=== PATIENT | female | born 1995 | race African-American/Black ===

== ENCOUNTER 2018-01-20 08:05 | Emergency (ER) | payer SELFPAY ==
[2018-01-20 08:12] VITALS: BP 126/79; PULSE 84; RESP 16; TEMP 98.6; O2SAT 100
--- NOTE | 2018-01-20 08:25 | PD ---
HPI Chief Complaint: Complaint Time Seen by Provider: 08:16 Travel History International Travel<30 days: No Contact w/Intl Traveler<30days: No Traveled to known affect area: No History of Present Illness HPI The patient is a 22-year-old female who presents to the emergency department with a 2 day history of dysuria, frequency, urgency, and suprapubic discomfort. The patient has been taking [id number] Azo with mild alleviation of her symptoms, however, it returned this morning at 5:30 AM, waking her from her sleep. She denies any vaginal discharge or vaginal bleeding. Patient is a G2 with 2 previous ectopics required surgery to remove her fallopian tubes. The patient's last menstrual cycle was mid December, she denies . He does complain of subjective fevers and chills, but denies any nausea, vomiting, upper abdominal pain, or back pain. Symptoms are moderate and possibly exacerbated by an underlying UTI. PFSH Past Medical History Narrative Medical Ectopic 2 Diminished Hearing: No : 1 Para: 0 Ectopic : Yes (SX IN ) Past Surgical History Genitourinary Surgery: Yes (TUBAL ) Pacemaker: No Social History Alcohol Use: No Tobacco Use: No Substance Use: No Allergies-Medications (Allergen,Severity, Reaction): Coded Allergies: No Known Allergies (Verified Adverse Reaction, Unknown, 01/20/18) Reported Meds & Prescriptions Reported Meds & Active Scripts Active No Active Prescriptions or Reported Medications Review of Systems Except as stated in HPI: all other systems reviewed are Neg General / Constitutional: Positive: Fever, Chills Gastrointestinal: No: Nausea, Vomiting, Abdominal Pain Genitourinary: Positive: Urgency, Frequency, Dysuria, Other (Suprapubic disc), No: Discharge, Vaginal Bleeding Physical Exam Narrative GENERAL: Awake, alert, pleasant 22-year-old female who appears her stated age and is in no acute respiratory distress. SKIN: Focused skin assessment warm/dry. HEAD: Atraumatic. Normocephalic. EYES: No injection or drainage. GASTROINTESTINAL: Abdomen soft, mild suprapubic tenderness. Back: No CVA tenderness. MUSCULOSKELETAL: No obvious deformities. No clubbing. No cyanosis. No edema. NEUROLOGICAL: Awake and alert. No obvious cranial nerve deficits. Motor grossly within normal limits. Normal speech. PSYCHIATRIC: Appropriate mood and affect; insight and judgment normal. Data Data Last Documented VS Vital Signs Date Time Temp Pulse Resp B/P (MAP) Pulse Ox O2 Delivery O2 Flow Rate FiO2 01/20/18 08:12 98.6 84 16 126/79 (95) 100 Orders Orders Urinalysis - C+S If Indicated (01/20/18 08:13) Ed Urine Pregnancytest Poc (01/20/18 08:13) Urine Culture (01/20/18 08:25) Labs Laboratory Tests Test 01/20/18 08:25 Urine Color YELLOW Urine Turbidity CLOUDY Urine pH 7.0 Urine Specific Lillian 1.021 Urine Protein 100 mg/dL Urine Glucose (UA) NEG mg/dL Urine Ketones NEG mg/dL Urine Occult Blood LARGE Urine Nitrite NEG Urine Bilirubin NEG Urine Urobilinogen LESS THAN 2.0 MG/DL Urine Leukocyte Esterase LARGE Urine RBC /hpf Urine WBC /hpf Urine WBC Clumps FEW Urine Squamous Epithelial Cells 2 /hpf Urine Bacteria OCC /hpf Urine Mucus FEW /lpf Microscopic Urinalysis Comment CULTURE INDICATED MDM Medical Decision Making Medical Screen Exam Complete: Yes Emergency Medical Condition: Yes Medical Record Reviewed: Yes Interpretation(s) Laboratory Tests Test 01/20/18 08:25 Urine Color YELLOW Urine Turbidity CLOUDY Urine pH 7.0 Urine Specific Lillian 1.021 Urine Protein 100 mg/dL Urine Glucose (UA) NEG mg/dL Urine Ketones NEG mg/dL Urine Occult Blood LARGE Urine Nitrite NEG Urine Bilirubin NEG Urine Urobilinogen LESS THAN 2.0 MG/DL Urine Leukocyte Esterase LARGE Urine RBC /hpf Urine WBC /hpf Urine WBC Clumps FEW Urine Squamous Epithelial Cells 2 /hpf Urine Bacteria OCC /hpf Urine Mucus FEW /lpf Microscopic Urinalysis Comment CULTURE INDICATED Differential Diagnosis Differential diagnosis includes UTI, cystitis, hemorrhagic cystitis, PID, cervicitis, vaginitis, nephrolithiasis. Narrative Course A bedside UA test was performed and UA was sent to lab. Bedside UA test was negative. UA reveals innumerable RBCs and WBCs. The patient will be treated for hemorrhagic cystitis with Bactrim twice a day for 7 days and Pyridium. She is advised to follow-up with her primary physician. Culture is pending. Return if symptoms worsen or progress. Diagnosis Primary Impression: Hemorrhagic cystitis Patient Instructions: General Instructions Additional Instructions: Medications as directed. Follow-up with your primary physician. Plenty of fluids to stay hydrated. Return if symptoms worsen or progress. Med/Other Pt SpecificInfo: Prescription(s) given Scripts Phenazopyridine (Pyridium) 100 Mg Tab 200 MG PO Q8H Y for DYSURIA for 2 Days, #12 TAB 0 Refills Prov: Trae Monroe MD 01/20/18 Sulfamethoxazole-Trimethoprim (Bactrim DS) 800-160 Mg Tab 1 TAB PO BID for Infection, #14 TAB 0 Refills Prov: Trae Monroe MD 01/20/18 Disposition: 01 DISCHARGE HOME Condition: Stable Trae Monroe MD Jan 20, 2018 08:25
[2018-01-20 08:58] LABS: BACTERIA, URINE OCC /hpf; BILIRUBIN, URINE NEG (NEG); BLOOD, URINE LARGE (NEG); GLUCOSE,URINE NEG (NEG); KETONE, URINE NEG (NEG); MUCUS URINE FEW /lpf (OCC); NITRITE,URINE NEG (NEG); SQUAMOUS EPITHELIAL CELL URINE 2 /hpf (0-5); URINE COLOR YELLOW (YELLW/STRAW); URINE LEUKOCYTE ESTERASE LARGE (NEG); WHITE BLOOD CELL CLUMPS FEW
[2018-01-20] MEDS ORDERED: BACT800T5 PO (09:06)
[2018-01-20] MEDS ORDERED: PHEN0.4T PO (09:06)
== END 2018-01-20 09:15 | disposition home or self-care (01) ==
LOC: NEPC 08:05
DX: N30.91 Cystitis, unspecified with hematuria (principal); B96.20 Unspecified Escherichia coli [E. coli] as the cause of diseases classified elsewhere
CPT/HCPCS: 81001; 84703; 87077; 87086; 87186; 99283